=== PATIENT | female | born 1980 | race Caucasian/White ===

== ENCOUNTER 2020-03-20 23:10 | Emergency (ER) | payer OTHER ==
[2020-03-20 23:54] VITALS: TEMP 97.9; BMI 32.5
[2020-03-21] MEDS ORDERED: ACETAMINOPHEN 500 MG TABLET (FP) PO ONE (00:09)
[2020-03-21] MEDS ORDERED: ACETAMINOPHEN 325 MG TABLET (FP) ONE (00:20)
[2020-03-21 00:28] LABS: PH,URINE >= 9.0 (5.0-8.0); URINE APPEARANCE CLEAR; URINE BILIRUBIN NEGATIVE (NEGATIVE); URINE COLOR YELLOW; URINE GLUCOSE (UA) NEGATIVE (NEGATIVE); URINE KETONE NEGATIVE (NEGATIVE); URINE LEUK ESTERASE NEGATIVE (NEGATIVE); URINE NITRITE NEGATIVE (NEGATIVE); URINE PROTEIN NEGATIVE (NEGATIVE); URINE UROBILINOGEN 0.2 mg/dL (0.2-1.0)
[2020-03-21 00:51] LABS: BASO % 0.2 % (0-2.0); EOS % 0.4 % (0-4.5); HEMATOCRIT 33.2 % (32.4-45.2); HEMOGLOBIN 10.7 GM/dL (10.7-15.3); LYMPH % 10.1 % (8-40); MCHC 32.2 g/dl (32.0-36.0); MEAN CELL VOLUME 83.9 fl (80-96); MONO % 7.5 % (3.8-10.2); NEUT % 81.8 % (42.8-82.8); PLATELET COUNT 297 K/MM3 (134-434); RBC 3.96 M/mm3 (3.60-5.2); RDW 14.1 % (11.6-15.6); WHITE BLOOD COUNT 12.6 K/mm3 (4.0-10.0)
[2020-03-21 01:10] LABS: POTASSIUM 3.9 mmol/L (3.5-5.1)
[2020-03-21 01:12] LABS: CALCIUM 8.3 mg/dL (8.5-10.1)
[2020-03-21 01:13] LABS: ALBUMIN 2.5 g/dl (3.4-5.0); BLOOD UREA NITROGEN 7.2 mg/dL (7-18)
[2020-03-21 01:16] LABS: CREATININE 0.5 mg/dL (0.55-1.3)
[2020-03-21 01:17] LABS: BILIRUBIN,TOTAL 0.2 mg/dL (0.2-1); TOT PROT 5.8 g/dl (6.4-8.2)
[2020-03-21] MEDS ORDERED: morphine CARPU-JECT 2 MG/1 ML DISP.SYRIN IVPUSH ONE (02:39)
[2020-03-21] MEDS ORDERED: MORPHINE SULFATE 2 MG/ML VIAL ONE ×2 (02:45→04:19)
[2020-03-21] MEDS ORDERED: morphine CARPU-JECT 4 MG/1 ML DISP.SYRIN IVPUSH ONE (04:15)
[2020-03-21 04:24] VITALS: BP 114/76; PULSE 89
== END 2020-03-21 05:45 | disposition short-term general hospital (02) ==
LOC: JER 23:10
PROC: 3E033NZ Introduction of Analgesics, Hypnotics, Sedatives into Peripheral Vein, Percutaneous Approach (ICD-10-PCS; principal; 2020-03-20)
PROC: 3E033NZ Introduction of Analgesics, Hypnotics, Sedatives into Peripheral Vein, Percutaneous Approach (ICD-10-PCS; 2020-03-20)
DX: N83.202 Unspecified ovarian cyst, left side (principal); Z3A.19 19 weeks gestation of pregnancy
CPT/HCPCS: 36415; 76856-TC; 80053; 81003; 85025; 87086; 99284-25; C9803; U0003

== ENCOUNTER 2020-07-07 12:00 | Inpatient (IN) | payer OTHER ==
[2020-08-04] MEDS ORDERED: ELECTROLYTE-148 SOLN 500 ML IV ONE (06:15)
[2020-08-04 06:47] VITALS: BMI 30.8
[2020-08-04 07:09] LABS: INR 0.9 (0.83-1.09); PROTHROMBIN TIME (PATIENT) 10.9 SEC (9.7-13.0)
[2020-08-04] MEDS ORDERED: ELECTROLYTE-148 SOLN 500 ML IV SCH (07:15)
[2020-08-04] MEDS ORDERED: CITRIC ACID/SODIUM CITRATE 30 ML UNIT-DOSE CUP PO ONE (07:15)
[2020-08-04] MEDS ORDERED: ELECTROLYTE-148 SOLN 1,000 ML IV SCH (07:45)
[2020-08-04] MEDS ORDERED: PHENYLEPHRINE HCL 10 MG/1 ML SINGLE DOSE VIAL ONE ×2 (07:55)
[2020-08-04] MEDS ORDERED: ePHEDrine SULFATE 50 MG/1 ML AMPULE ONE ×2 (07:55→07:56)
[2020-08-04] MEDS ORDERED: PROPOFOL 20 ML ONE ×2 (07:56)
[2020-08-04] MEDS ORDERED: ONDANSETRON 4 MG/2 ML VIAL ONE (08:00)
[2020-08-04] MEDS ORDERED: ceFAZolin SODIUM 1 GM VIAL ONE (08:00)
[2020-08-04] MEDS ORDERED: KETOROLAC TROMETHAMINE 30 MG/1 ML VIAL ONE (08:00)
[2020-08-04] MEDS ORDERED: OXYTOCIN 10 UNITS/ML VIAL ONE (08:00)
[2020-08-04] MEDS ORDERED: LIDOCAINE HCL/PF 2% SDV 5ML VIAL ONE (08:24)
[2020-08-04] MEDS ORDERED: ACETAMINOPHEN 500 MG TABLET (FP) PO PRN (09:53)
[2020-08-04] MEDS ORDERED: ACETAMINOPHEN 1000 MG/100 ML VIAL (NON FORMULARY) IVPB PRN (10:13)
[2020-08-04] MEDS ORDERED: IBUPROFEN 800 MG/8 ML IJ IVPB PRN (10:13)
[2020-08-04] MEDS ORDERED: oxyCODONE HCL 5 MG TABLET PO PRN (10:13)
[2020-08-04] MEDS ORDERED: ONDANSETRON 4 MG/2 ML VIAL IVPUSH PRN (10:13)
[2020-08-04] MEDS ORDERED: OXYTOCIN 20 UNITS in 0.9% NS 20 UNIT/1,000 ML INFUS.BAG IV SCH (10:15)
[2020-08-04] MEDS: CEFAZOLIN 2 GM/D5W 2 GM/50 ML ML IVPB SCH (17:13)
[2020-08-04] MEDS ORDERED: SENNOSIDES/DOCUSATE COMBO (SENNA PLUS) TABLET (UD) PO PRN (22:00)
[2020-08-05] MEDS: CEFAZOLIN 2 GM/D5W 2 GM/50 ML ML IVPB SCH ×2 (01:03→09:16)
[2020-08-05] MEDS: ACETAMINOPHEN 325 MG TABLET (FP) PO PRN ×3 (01:04→17:21)
[2020-08-05] MEDS: SIMETHICONE 80 MG TAB.CHEW (FP) PO PRN ×2 (01:04→06:00)
[2020-08-05] MEDS: IBUPROFEN 600 MG TABLET (FP) PO PRN ×2 (06:01→17:20)
[2020-08-05 08:47] LABS: BASO % 0.3 % (0-2.0); EOS % 1.4 % (0-4.5); HEMATOCRIT 32.2 % (32.4-45.2); HEMOGLOBIN 10.2 GM/dL (10.7-15.3); LYMPH % 9.4 % (8-40); MCH 25.9 pg (25.7-33.7); MCHC 31.7 g/dl (32.0-36.0); MEAN CELL VOLUME 81.8 fl (80-96); MEAN PLT VOLUME 9.7 fl (7.5-11.1); MONO % 8.6 % (3.8-10.2); NEUT % 80.3 % (42.8-82.8); PLATELET COUNT 235 10^3/uL (134-434); RBC 3.94 M/mm3 (3.60-5.2); RDW 15.1 % (11.6-15.6); WHITE BLOOD COUNT 13.9 K/mm3 (4.0-10.0)
[2020-08-05] MEDS ORDERED: DIPHTH,PERTUSS(ACELL),TET 0.5 ML DISP.SYRIN IM ONE (10:00)
[2020-08-05] MEDS ORDERED: BISACODYL 10 MG SUPP.RECT RC PRN (10:13)
[2020-08-06] MEDS: ACETAMINOPHEN 325 MG TABLET (FP) PO PRN ×2 (02:12→09:18)
[2020-08-06] MEDS: IBUPROFEN 600 MG TABLET (FP) PO PRN ×2 (02:13→09:15)
[2020-08-06] MEDS: SIMETHICONE 80 MG TAB.CHEW (FP) PO PRN (09:19)
[2020-08-06 13:34] VITALS: BP 111/75; PULSE 93; TEMP 98.7
== END 2020-08-06 14:05 | disposition home or self-care (01) | DRG 540 ==
LOC: JLDR 08-04 06:00 → J3W 08-04 11:05
PROVIDERS: ADMIT Specialist; ATTEND Specialist
PROC: 10D00Z1 Extraction of Products of Conception, Low, Open Approach (ICD-10-PCS; principal; 2020-08-04)
PROC: 0UT50ZZ Resection of Right Fallopian Tube, Open Approach (ICD-10-PCS; 2020-08-04)
PROC: 0DNW0ZZ Release Peritoneum, Open Approach (ICD-10-PCS; 2020-08-04)
DX: O34.219 Maternal care for unspecified type scar from previous cesarean delivery (principal); O99.892 Other specified diseases and conditions complicating childbirth; N73.6 Female pelvic peritoneal adhesions (postinfective); Z3A.38 38 weeks gestation of pregnancy; Z37.0 Single live birth; Z30.2 Encounter for sterilization
CPT/HCPCS: 36415; 85025; 85610; 85730; 86850; 86900; 86901; 88302-TC; 88304-TC; 88307-TC

== ENCOUNTER 2020-07-31 11:24 | Emergency (ER) | payer OTHER ==
[2020-07-31 11:30] VITALS: BP 106/66; PULSE 93; TEMP 97.8; BMI 30.8
== END 2020-07-31 12:35 | disposition home or self-care (01) ==
LOC: JERFT 11:24
DX: S93.402A Sprain of unspecified ligament of left ankle, initial encounter (principal); Z3A.38 38 weeks gestation of pregnancy; Z11.52 Encounter for screening for COVID-19
CPT/HCPCS: 73610-TC-LT-FY; 99284-25; C9803; U0003; U0005